=== PATIENT | male | born 1990 | race Asian ===

== ENCOUNTER 2018-02-17 15:35 | Emergency (ER) | payer OTHER ==
[~2018-02-17] VITALS: Ht 175.3 cm; Wt 72.6 kg
[2018-02-17 16:23] LABS: BASOPHILS 0.7 % (0.0-2.0); EOSINOPHILS 2.6 % (0.0-3.0); LYMPHOCYTES 29.5 % (24.0-44.0); MCH 30.1 pg (26.0-34.0); MCHC 34.7 g/dL (28.0-37.0); MCV 86.9 fL (80.0-100.0); MONOCYTES 11.3 % (1.0-8.0); PLATELET COUNT 222 thou/uL (150-400); POLYS 55.9 % (36.0-66.0); RBC 5.64 mil/uL (4.50-6.00); WBC 5.4 thou/uL (4.0-11.0)
[2018-02-17 16:30] LABS: CALCIUM 9.4 mg/dL (8.5-10.1); POTASSIUM 3.8 mmol/L (3.5-5.1)
[2018-02-17 16:36] LABS: ALBUMIN 4.3 g/dL (3.4-5.0); TOTAL BILIRUBIN 0.5 mg/dL (<0.1-1.0); TOTAL PROTEIN 8.6 g/dL (6.4-8.2)
[2018-02-17 18:16] VITALS: BP 134/84
== END 2018-02-17 18:39 ==
LOC: ER 15:35
PROVIDERS: Physician Assistant
DX: H40.052 Ocular hypertension, left eye (principal); H11.422 Conjunctival edema, left eye; L03.213 Periorbital cellulitis